=== PATIENT | male | born 1960 | race Caucasian/White ===

== ENCOUNTER 2023-02-20 06:47 | Outpatient (OUT) | payer OTHER, SELFPAY ==
[2023-02-20 07:18] LABS: Basophils Percent Auto 0.4 % (0.2-2.0); Eosinophils Percent Auto 0.2 % (0.9-7.0); Hematocrit 39.3 % (42.0-54.0); Hemoglobin 12.8 g/dL (14.0-18.0); Immature Granulocytes Abs Auto 0.01 10^3/uL (0.00-0.03); Immature Granulocytes Pct Auto 0.2 % (0.0-0.5); Lymphocytes Absolute Auto 0.9 10^3/uL (1.2-3.8); Lymphocytes Percent Auto 18.9 % (20.5-60.0); Mean Corpuscular HGB Conc 32.6 g/dL (29.9-35.2); Mean Corpuscular Hemoglobin 27.8 pg (25.9-34.0); Mean Corpuscular Volume 85.2 fL (80.0-94.0); Mean Platelet Volume 10.7 fL (9.5-13.5); Monocytes Absolute Auto 0.7 10^3/uL (0.3-0.8); Monocytes Percent Auto 13.8 % (1.7-12.0); Neutrophils Absolute Auto 3.3 10^3/uL (1.4-6.5); Neutrophils Percent Auto 66.5 % (43.0-75.0); Platelet Count 153 10^3/uL (150-450); Red Blood Count 4.61 10^6/uL (4.70-6.10); Red Cell Distribution Width 13.4 % (11.0-15.0); White Blood Count 4.9 10^3/uL (4.0-11.0)
[2023-02-20 07:46] LABS: Estimated Average Glucose 108 mg/dL; Glycohemoglobin A1C 5.4 % (4.5-6.2)
[2023-02-20 08:01] LABS: Alanine Aminotransferase 31 U/L (16-63); Albumin Globulin Ratio 1.1; Albumin Level 3.8 g/dL (3.4-5.0); Alkaline Phosphatase 71 U/L (46-116); Aspartate Amino Transferase 26 U/L (15-37); BUN Creatinine Ratio 29.6; Bilirubin Total 0.3 mg/dL (0.2-1.0); Calcium 8.8 mg/dL (8.5-10.1); Carbon Dioxide 33.6 mmol/L (21.0-32.0); Chloride 102 mmol/L (98-107); Chol HDL Ratio 2.2; Cholesterol 159 mg/dL (<=200); Estimated GFR (African America >60 (>=60); Estimated GFR (Non-African Ame >60 (>=60); Free T3 2.78 pg/mL (2.18-3.98); Globulin 3.6 g/dL; Glucose 96 mg/dL (74-106); HDL Cholesterol 71 mg/dL (40-60); Potassium 4.6 mmol/L (3.5-5.1); Sodium 143 mmol/L (136-145); Thyroid Stimulating Hormone 3.296 uIU/mL (0.358-3.740); Total Protein 7.4 g/dL (6.4-8.2); Triglycerides 37 mg/dL (<=150); Uric Acid 4.3 mg/dL (3.5-7.2); VLDL CHOLESTEROL 7.4 mg/dL
[2023-02-20 08:05] LABS: Prostate Specific Antigen Scrn 3.62 ng/mL (<=4.00)
[2023-02-22 11:08] LABS: Insulin 4.6 uIU/mL (2.6-24.9)
== END 2023-02-20 06:48 | disposition home or self-care (01) ==
PROVIDERS: PCP Family Medicine; Visit Provider Family Medicine
DX: Z00.00 Encounter for general adult medical examination without abnormal findings (principal); Z12.5 Encounter for screening for malignant neoplasm of prostate
CPT/HCPCS: 36415; 80053; 80061; 83036; 83525; 84436; 84443; 84481; 84550; 85025; G0103

== ENCOUNTER 2023-04-13 14:15 | Outpatient (OUT) | payer OTHER, SELFPAY | END 2023-04-13 14:16 | disposition home or self-care (01) | LOC: PST 14:15 | PROVIDERS: PCP Family Medicine; Visit Provider Surgery | DX: Z01.818 Encounter for other preprocedural examination (principal); Z12.11 Encounter for screening for malignant neoplasm of colon; D50.0 Iron deficiency anemia secondary to blood loss (chronic) ==

== ENCOUNTER 2023-04-21 06:59 | Day surgery (SDC) | payer OTHER, SELFPAY ==
--- NOTE | 2023-04-21 | OP_ITS ---
OPERATION DATE: ??04/21/2023 PREOPERATIVE DIAGNOSIS:? Anemia. POSTOPERATIVE DIAGNOSIS:? Mild antral gastritis, normal colon. PROCEDURE:? EGD with antral biopsy x2 and colonoscopy to cecum. SURGEON:? Donovan Green M.D. ANESTHESIA:? Monitored anesthesia care. ESTIMATED BLOOD LOSS:? Less than 2 mL. INDICATIONS AND CONSENT:? Patient is a 62-year-old male with multiple medical problems, who presents for evaluation of anemia.? Indications, risks, benefits, alternatives of proceeding with EGD and colonoscopy were explained extensively to the patient, including the risks of bleeding, aspiration, esophageal/gastric/duodenal or colonic perforation or anesthetic complications.? All of his questions were answered.? Informed consent was obtained. PROCEDURE:? Patient brought to the operating room, placed in the left lateral decubitus position.? Monitored anesthesia care was provided.? Bite block was placed in the patient?s mouth.? Scope was inserted into the oropharynx.? Under direct visualization, it was advanced into the esophagus, past the cricopharyngeus, down to the stomach.? The stomach was insufflated with air.? The pylorus was traversed down to the descending portion of the duodenum.? There was no evidence of duodenitis or ulceration.? There was no scarring within the pyloric channel.?? Scope was pulled back into the stomach and retroflexed.? There was a small sliding type hiatal hernia.? Within the antrum, there was some mild antral gastritis with some nodularity. ?Biopsy was obtained x2 with cold biopsy forceps with good hemostasis.? The GE junction was noted at approximately 41 cm.? There was no distal esophagitis or Couch?s changes. ?Remainder of the esophagus was unremarkable.? The scope was then withdrawn.? Patient was then positioned for colonoscopy.? Rectal exam was performed, which showed no masses or blood.? The scope was inserted into the anal canal.? Under direct visualization, it was advanced.? With the aid of abdominal compression, it was advanced to the cecum where cecal markings were clearly identified.? There was noted to be a good prep.? Upon withdrawal of the scope, mucosal surfaces were carefully examined.? There were no mass lesions or polyps.? No inflammatory changes or ulcerations.? There was rare sigmoid diverticulitis without inflammatory changes or scarring.? The scope was retroflexed in the anal canal.? There was no significant hemorrhoidal disease.? The scope was then withdrawn.? The patient tolerated the procedure well, was sent to recovery room in good condition. Follow up colonoscopy should be in 10 years for screening. CC:? Alfa Resendiz M.D. [facility]
[2023-04-21 07:27] VITALS: BP 137/113; PULSE 71; RESP 16; TEMP 36.2; O2SAT 99; BMI 16.1
[2023-04-21] MEDS: LACTATED RINGER'S SOLUTION 1,000 ML 50 ML IV (07:35)
[2023-04-21 07:39] VITALS: BP 152/83
[2023-04-21 10:21] VITALS: BP 113/72; PULSE 64; RESP 16; TEMP 36; O2SAT 100
[2023-04-21 10:34] VITALS: BP 108/70; PULSE 60; RESP 16; O2SAT 99
[2023-04-21 10:45] VITALS: BP 121/84; PULSE 57; RESP 16; O2SAT 99
== END 2023-04-21 10:50 ==
PROVIDERS: PCP Family Medicine; Visit Provider Surgery
PROC: (CPT 43239; principal; 2023-04-21 08:35)
DX: D50.0 Iron deficiency anemia secondary to blood loss (chronic) (principal); Z12.11 Encounter for screening for malignant neoplasm of colon; E78.00 Pure hypercholesterolemia, unspecified; N40.0 Benign prostatic hyperplasia without lower urinary tract symptoms; Z87.891 Personal history of nicotine dependence; K29.70 Gastritis, unspecified, without bleeding; K44.9 Diaphragmatic hernia without obstruction or gangrene; K57.32 Diverticulitis of large intestine without perforation or abscess without bleeding
CPT/HCPCS: 43239; 45378; 88305; 88342; J2704